=== PATIENT | female | born 1975 | race Caucasian/White ===

== ENCOUNTER → 2016-08-31 | Outpatient (CLI) | payer OTHER ==
[~2016-08-31] MED LIST: EFFEXOR XR150 MG PO; ELAVIL75 MG PO; MODAFINIL200 MG PO; NORVASC10 MG PO; PRILOSEC20 MG PO; TOPAMAX50 MG PO; VESICARE10 MG PO; ZONEGRAN100 MG PO
--- NOTE | ~2016-08-31 | PUL ---
PATIENT'S NAME: ANAT TRAN [facility] AGE: 40 Y [address] ROOM: [place] [address] LOCATION: [facility] ADMIT DATE: 08/31/2016 Pulmonary DISCHARGE DATE: FAMILY PHYSICIAN: Estrella Drew MD ATTENDING PHYSICIAN: Estrella Drew NAME OF PROCEDURE: Sleep study DATE OF PROCEDURE: 08/31/16 TECH: REGINALD Purcell TEST #: [facility] [place]# [id number] MEDICAL HISTORY: Patient is a 40-year-old overweight woman with a history of daytime sleepiness. SLEEP STAGE SUMMARY: The patient was studied for 8.5 hours. Sleep architecture revealed a decline in slow wave and REM sleep. RESPIRATORY SUMMARY: Oxygen saturations ranged from 88-93%. There was 1 apnea and 22 hypopneas for an apnea/hypopnea index normal at 3 events per hour. EKG SUMMARY: No dysrhythmias were noted. LIMB MOVEMENT SUMMARY: No clinically relevant periodic limb movements were noted. SUMMARY: No evidence of significant obstructive sleep apnea. PLAN: Patient will receive results from the ordering provider. MD EUNICE MAYNARD/ /[id number] dtt: 09/19/16 1252 , Joni Zaragoza dtd: 09/03/16 1550
== END | disposition disaster alternative care site (69) ==
LOC: GSLP 20:07
DX: G47.419 Narcolepsy without cataplexy (principal); F39 Unspecified mood [affective] disorder; R40.0 Somnolence; R00.2 Palpitations; R63.5 Abnormal weight gain; R55 Syncope and collapse; R94.5 Abnormal results of liver function studies; Z82.49 Family history of ischemic heart disease and other diseases of the circulatory system; Z87.898 Personal history of other specified conditions

== ENCOUNTER 2016-12-26 19:24 | Emergency (ER) | payer SELFPAY ==
--- NOTE | ~2016-12-26 | ER ---
PATIENT'S NAME: ANAT TRAN [facility] AGE: 41 Y [address] ROOM: [place] [address] LOCATION: [facility] ADMIT DATE: 12/26/2016 ER/Outpatient Report DISCHARGE DATE: 12/26/2016 FAMILY PHYSICIAN: Estrella Drew MD ATTENDING PHYSICIAN: Mitchell Duong Admission date and time are documented in the medical record. I saw the patient at 1935 hours. CHIEF COMPLAINT: Pain behind right knee. HISTORY OF PRESENT ILLNESS: The patient is a 41-year-old female, who has had pain behind her right knee since 0600 hours this morning. There is no redness, swelling, or open wounds. No known injury. She previously had a DVT that presented similarly to the present complaint. She is not on any blood thinners at the present time. As stated above, no history of fall or trauma. She has not been sitting or traveling long distance recently. No chest pain or shortness of breath. No abdominal pain, nausea, vomiting, or diarrhea. No lightheadedness, dizziness, syncope, or near-syncope. No recent cough, cold, flus, fever, chills, or sweats. HOME MEDICATIONS: See attached medication list. ALLERGIES: PENICILLIN, NSAIDS. SOCIAL HISTORY: Nonsmoker, nondrinker. SIGNIFICANT PAST MEDICAL HISTORY: Hypertension, ADHD, anxiety, depression, overactive bladder, fibromyalgia, narcolepsy, insomnia, headaches, Raynaud phenomenon, gastritis, pancreatitis, DVT. OPERATIONS: Right ankle surgery, right shoulder surgery, cholecystectomy, hysterectomy, C- section, breast biopsy. REVIEW OF SYSTEMS: All systems reviewed by me are negative with the exception of those discussed in the history of present illness. PATIENT'S NAME: ANAT TRAN [facility] AGE: 41 Y [address] ROOM: [place], [place] [address] LOCATION: [facility] ADMIT DATE: 12/26/2016 ER/Outpatient Report DISCHARGE DATE: 12/26/2016 FAMILY PHYSICIAN: Estrella Drew MD ATTENDING PHYSICIAN: Mitchell Duong PHYSICAL EXAMINATION: VITAL SIGNS: Temperature 98.7 tympanic, pulse 86, respirations 18, blood pressure 104/62. EXTREMITIES: On examination, the patient has tenderness in the popliteal fossa of the right knee, lower leg. No swelling. No redness. Neurovascularly intact. Pulse is intact. DIAGNOSTIC DATA: Venous Doppler study showed a small clot in the popliteal vein right behind the knee. White count 9400, 66 segs, 23 lymphs, 7 monos, 2 eos, 1 baso, hemoglobin is 13.6, hematocrit 40.6, platelet count is 324,000. IMPRESSION: Deep vein thrombosis, right leg behind the knee in the deep popliteal vein. PLAN: I did discuss the patient with Dr. Dugan for Dr. Drew. We will give the patient 15 mg of Xarelto orally here in the emergency department. Dismissed home. Observation. Activity as tolerated. Continue present home care and medications. See Dr. Dugan in Thursday morning clinic at [facility] from 0830 hours to noon. Discussion ensued with the patient concerning my findings and recommendations, she understands. MD BRUCE CASTORENA/modl /[id number] d: 12/27/167 t: 12/30/16 1820, OUTPATIENT REPORT
--- NOTE | ~2016-12-26 | ENPV ---
Vascular Lower Extremities DVT Study Procedure Demographics Patient Name ANAT TRAN Date of Study 12/26/2016 Patient Number [id number] Gender Female Date of 1975 Age 41 Visit Number [id number] Height Accession Number [id number] Weight Room Number BSA BMI Referring Ad Ruth MD Interpreting Rodríguez Lynn MD Physician Physician Physician Ordering Physician Ad Ruth Plant Assigner Watch Inspector Final Movement Melvi Geovany [facility], RVT Conclusions Summary TECHNIQUE: The veins of the lower extremity on the right were evaluated from the groin to the ankle using garcia scale, compression, and augmentation. Venous hemodynamics were evaluated with color flow and spectral Doppler. FINDINGS: The right common femoral and superficial femoral veins are patent as are the calf veins. These vessels show normal color flow and compressibility without thrombosis. There is chronic partially occlusive thrombus in the right popliteal vein IMPRESSION: 1. 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 Indications for Study:DVT, History of. Additional Indications:pain Appropriate Use Criteria:9 Patient Status:STAT. Study Location:ER. Technical Quality:Adequate visualization. Velocities are measured in cm/s ; Diameters are measured in cm Right Lower Extremities DVT Study Measurements Right 2D and Doppler Measurements + + + + +------+------+ + !Location !Visualized!Compressibility!Thrombosis!Signal!Reflux!Reflux ! ! ! ! ! ! ! !(sec) ! + + + + +------+------+ + !GSV Thigh !Yes !Yes !None !Phasic! ! ! + + + + +------+------+ + !Common !Yes !Yes !None !Phasic! ! ! !Femoral ! ! ! ! ! ! ! + + + + +------+------+ + !Prox !Yes !Yes !None !Phasic! ! ! !Femoral ! ! ! ! ! ! ! + + + + +------+------+ + !Mid Femoral!Yes !Yes !None !Phasic! ! ! + + + + +------+------+ + !Dist !Yes !Yes !None !Phasic! ! ! !Femoral ! ! ! ! ! ! ! + + + + +------+------+ + !Popliteal !Yes !Partial !Chronic !Phasic! ! ! + + + + +------+------+ + !Gastroc !Yes ! ! ! ! ! ! + + + + +------+------+ + !PTV !Yes ! !None !Phasic! ! ! + + + + +------+------+ + !Peroneal !Yes ! !None !Phasic! ! ! + + + + +------+------+ + Left Lower Extremities DVT Study Measurements Left 2D and Doppler Measurements + + + + +------+------+ + !Location !Visualized!Compressibility!Thrombosis!Signal!Reflux!Reflux ! ! ! ! ! ! ! !(sec) ! + + + + +------+------+ + !Common !Yes !Yes !None !Phasic!No ! ! !Femoral ! ! ! ! ! ! ! + + + + +------+------+ + Impressions Right Impression The common femoral vein to the distal superficial femoral vine appear patent. Partial dvt in right pop vein. Left Impression normal on comparison. Signature dtt: Que Arreguin: 12/26/16 2007 Physician Self Edit
[2016-12-26 20:08] LABS: BASOPHIL # 0.1 K/uL (0.0-0.2); EOSINOPHIL # 0.2 K/uL (0.0-0.5); HEMATOCRIT 40.6 % (33.0-46.0); HEMOGLOBIN 13.6 g/dL (10.0-15.0); IMMATURE GRANULOCYTE % 0.4 %; LYMPHOCYTE # 2.2 K/uL (0.8-4.0); MCH 28.3 pg (27.0-34.0); MCHC 33.5 gm/dL (32.0-36.5); MCV 84.4 fl (83.0-98.0); MONOCYTE # 0.7 K/uL (0.0-1.0); MONOCYTE % 7.2 %; MPV 9.6 fl (9.4-12.4); NEUTROPHIL # (ANC) 6.2 K/uL (1.8-7.8); NEUTROPHIL % 66.4 %; NRBC % 0 /100WBC (0-0.00); PLATELET COUNT 324 K/uL (150-450); RBC 4.81 M/uL (3.50-5.50); RDW-CV 12.9 % (11.9-14.6); WBC 9.4 K/uL (4.0-11.0)
[2016-12-26 20:18] LABS: INR - (THERAPEUTIC) 0.95 (0.92-1.07); PTT 25 SECONDS (25-32)
== END 2016-12-26 20:43 | disposition disaster alternative care site (69) ==
LOC: GMED 19:24
PROVIDERS: Emergency Medicine
DX: I82.531 Chronic embolism and thrombosis of right popliteal vein (principal); I10 Essential (primary) hypertension; F32.9 Major depressive disorder, single episode, unspecified; F41.9 Anxiety disorder, unspecified; Z79.899 Other long term (current) drug therapy; Z88.0 Allergy status to penicillin; Z88.6 Allergy status to analgesic agent; Z90.49 Acquired absence of other specified parts of digestive tract; Z90.710 Acquired absence of both cervix and uterus; Z98.890 Other specified postprocedural states

== ENCOUNTER → 2017-01-16 | Outpatient (CLI) | payer OTHER ==
--- NOTE | ~2017-01-16 | ESTC ---
Cardiac Perfusion Imaging Demographics Patient Name CHELSEA Elias Gender Female Patient Number [id number] Race Visit Number [id number] Ethnicity Corporate ID Room Number Accession Number [id number] Height 66 inches Date of 1975 Weight 200 pounds Interpreting Benny Melissa MD Date of study 01/16/2017 Physician Supervising /[place] NM Technologist FISCAL OFFICER Ordering Physician Benny Melissa MD Stress highway technician Stress ECG Reading Kelly Ruiz Nurse Kacie Ruth Physician FISCAL OFFICER MARJ William The procedure was explained in detail to the patient. Risks, complications and alternative treatments were reviewed. Written consent was obtained. Medications Reviewed with Patient prior to Procedure. Procedure Procedure Type: Nuclear Stress Test:Pharmacological, Lexiscan, Cardiolite Stress Test Procedure Start time: 01/16/2017 00:00 Indications: Chest pain. Risk Factors The patient risk factors include:former tobacco use, treated hypertension and family history of premature CAD. Conclusions Summary Cardiolite SPECT images demonstrate homogenous uptake of radioactive tracer. NO evidence of inducible reversible defect and no evidence of underlying fixed defect. Normal TID ratio of o.91 Gated images demonstrate normal left ventricular systolic function without inducible wall motion abnormalities. LVEF is 74% Stress Protocols Resting ECG RSR without ST or T wave changes Resting HR:86 bpm Resting BP:111/77 mmHg Pre-stress physical exam: Patient assessed by Uday Mendoza APRN prior to testing. Stress Protocol:Pharmacologic Peak HR:101 bpm HR response: Appropriate Peak BP:120/79 mmHg BP response: Appropriate Predicted HR: 178 bpm HR/BP product:65201 % of predicted HR: 57 Reason for termination:Infusion complete ECG Findings Sinus tachycardia. QT prolonged after lexiscan Arrhythmias No rhythm abnormality. Symptoms Shortness of breath. Stress Interpretation Appropriate hemodynamic response to Lexiscan. No significant ST-T wave changes with Lexiscan. ECG portion is negative for ischemia by diagnostic criteria. Stress supervision and interpretation provided by Rosa Elena Mendoza APRN . Imaging Results Summed scores - Summed stress score: 4 - Summed rest score: 1 - Summed difference score: 3 Stress ejection Ejection fraction:74 % EDV :86 ml ESV :22 ml Stroke volume :64 ml LV mass :124 gr Imaging Protocols Rest Stress Isotope:Tc99m Sestamibi IV Isotope: Tc99m Sestamibi IV Isotope dose:14.4 mCi Isotope dose:44.17 mCi Date:01/16/2017 07:28 Date:01/16/2017 09:08 Technique: SPECT Technique: Gated Supine SPECT Supine Scan Time:45-60 minutes post Scan Time:45-60 minutes post injection injection Procedure Medications - Regadenoson (Lexiscan) 0.4 mg IV over 10-15 sec. . Medical History Admission Data Admission date: 01/16/2017 Admission Time: 07:10 Hospital Status: Outpatient. Signatures dtt: Shin Zapata (cardio) dtd: 01/16/17 0000 Physician Self Edit
== END | disposition disaster alternative care site (69) ==
LOC: GRAD 07:10
DX: R07.9 Chest pain, unspecified (principal)
CPT/HCPCS: A9500; J2785